=== PATIENT | female | born 1940 | race Caucasian/White ===

== ENCOUNTER → 2016-04-15 | Outpatient (CLI) | payer MEDICARE ==
[~2016-04-15] MED LIST: ASPIRIN EC81 MG PO; LOPRESSOR DPS12.5 MG PO; PLAVIX75 MG PO; PREPARATION H O60 GM TP; VITAMIN D3400 UNIT PO
== END | disposition home or self-care (01) ==
LOC: RAD.S 15:40
DX: I77.9 Disorder of arteries and arterioles, unspecified (principal); I48.0 Paroxysmal atrial fibrillation; G93.0 Cerebral cysts